=== PATIENT | male | born 1995 | race African-American/Black ===

== ENCOUNTER 2022-05-30 04:06 | Emergency (ER) | payer MEDICAID ==
[~2022-05-30] VITALS: Ht 180.3 cm; Wt 75.1 kg
[2022-05-30 04:41] VITALS: BP 117/47
[2022-05-30] MEDS ORDERED: TETANUS, DIPHTHERIA, PERTUSSIS VAC/PF 0.5ML (>10YR OLD) IM ONE (08:45)
== END 2022-05-30 09:52 | disposition home or self-care (01) ==
LOC: ER 04:06 → EDBD 04:06 → ER 09:52
DX: S61.216A Laceration without foreign body of right little finger without damage to nail, initial encounter (principal); X58.XXXA Exposure to other specified factors, initial encounter; Y93.89 Activity, other specified; Y92.89 Other specified places as the place of occurrence of the external cause; Y99.8 Other external cause status
CPT/HCPCS: 12001; 73130; 90471; 90715; 99283; Z7610

== ENCOUNTER 2024-09-29 16:32 | Emergency (ER) | payer MEDICAID ==
[~2024-09-29] VITALS: Ht 172.7 cm; Wt 75.0 kg
[2024-09-29 16:43] VITALS: O2SAT 100
[2024-09-29 18:14] LABS: BASOPHILS % 0.3 % (0.0-2.0); EOSINOPHILS % 2.3 % (0.0-5.0); HEMATOCRIT. 40.8 % (42.0-52.0); HEMOGLOBIN. 13.8 g/dL (14.0-18.0); LYMPHOCYTES % 15.8 % (20.0-50.0); MEAN PLATELET VOLUME 8.1 fl (7.4-10.4); MONOCYTES % 6.8 % (2.0-8.0); NEUTROPHILS % 74.8 % (40.0-76.0); PLATELET 286 x1000/uL (130-400); RED BLOOD CELL COUNT 4.26 mill/uL (4.7-6.1); RED CELL DISTRIBUTION WIDTH 14.9 % (11.6-14.6)
[2024-09-29 18:27] LABS: CREATININE 1.0 mg/dL (0.6-1.3)
[2024-09-29 18:28] LABS: UREA NITROGEN BLOOD 10 mg/dL (9-23)
[2024-09-29] MEDS ORDERED: DIPH25TA62 MT (20:04)
[2024-09-29] MEDS ORDERED: ALBU18HF2 IH (20:04)
[2024-09-29] MEDS ORDERED: MUPI15CR11 TP (20:04)
[2024-09-29] MEDS ORDERED: HYDR453.3 TP (20:04)
[2024-09-29 20:15] VITALS: BP 122/79; PULSE 64; RESP 14; TEMP 36.8; O2SAT 100
== END 2024-09-29 20:20 | disposition home or self-care (01) ==
LOC: ER 16:32
DX: L01.00 Impetigo, unspecified (principal); F17.200 Nicotine dependence, unspecified, uncomplicated; J98.01 Acute bronchospasm; L30.9 Dermatitis, unspecified
CPT/HCPCS: 36415; 71045; 80048; 85025; 87070; 87430; 99284